=== PATIENT | female | born 1955 | race Caucasian/White ===

== ENCOUNTER 2021-09-24 19:51 | Inpatient (IN) | payer MEDICARE, MEDICAID ==
[~2021-09-24] VITALS: Ht 167.6 cm; Wt 117.0 kg
[~2021-09-24 19:51] MED LIST: ALBUAER3 IN; BUDE0.5S IN; IBUP800T27 PO; LISI20TA28 PO; RABE20TA19 PO; ROFL1TAB2 PO; THEO300T5 PO
[2021-09-24] MEDS ORDERED: IPRATROPIUM BROM 0.5 MG/2.5ML INH SOL NEB ONE ×2 (20:30→22:30)
[2021-09-24] MEDS ORDERED: ALBUTEROL SULF 2.5 MG/0.5ML(0.5%) NEB SOLN NEB ONE ×2 (20:30→22:30)
[2021-09-24] MEDS ORDERED: methylPREDNISolone SOD SUCC 125 MG/2 ML VL IV ONE (20:30)
[2021-09-24] MEDS ORDERED: ALBUTEROL SULF 2.5 MG/0.5ML(0.5%) NEB SOLN ONE (20:34)
[2021-09-24] MEDS ORDERED: AZITHROMYCIN 500MG/ 250ML 250 ML IV ONE (22:00)
[2021-09-24 23:51] LABS: Basophils # (auto) 0.1 10 ^3/uL (0-0.2); Basophils % (auto) 0.9 % (0.0-2.0); Eosinophils # (auto) 0 10 ^3/uL (0-0.8); Hematocrit 44.5 % (36.0-46.0); Hemoglobin 14.2 g/dL (12.2-16.2); Lymphocytes # (auto) 0.3 10 ^3/uL (0.4-5.4); Lymphocytes % (auto) 3.6 % (10.0-50.0); Mean Corpuscular Hemoglobin 28.7 pg (28.0-32.0); Mean Corpuscular Hgb Conc. 31.9 g/dL (32.0-36.0); Mean Corpuscular Volume 89.9 fL (80.0-100.0); Monocytes # (auto) 0.2 10 ^3/uL (0-1.3); Monocytes % (auto) 2.8 % (0.0-12.0); Neutrophils # (auto) 8.3 10 ^3/uL (1.6-8.6); Neutrophils % (auto) 92.7 % (37.0-80.0); Red Blood Cells 4.95 10^6/uL (4.0-5.20); Red Cell Distribution Width 13.5 % (11.8-14.3); White Blood Cell 8.9 10^3/uL (4.4-10.8)
[2021-09-25 00:21] LABS: Lactic Acid w/Reflex 2.4 mmol/L (0.4-2.0)
[2021-09-25 00:22] LABS: Albumin 3.3 g/dL (3.4-5.0); Calcium 8.2 mg/dL (8.5-10.1); Magnesium 2.8 mg/dL (1.6-2.6); Potassium 3.7 mmol/L (3.5-5.1)
[2021-09-25 00:39] LABS: BUN/Creatinine Ratio 12.1; Bilirubin, Total 0.2 mg/dL (0.2-1.0); Total Protein 7.7 g/dL (6.4-8.2)
[2021-09-25] MEDS ORDERED: HYDROcodone-ACET 5/325MG TAB PO PRN (01:00)
[2021-09-25] MEDS ORDERED: TEMAZEPAM 15 MG CAP PO PRN (01:00)
[2021-09-25] MEDS ORDERED: MORPHINE SULFATE INJECTION 2 MG/ML SYRG IV PRN (01:00)
[2021-09-25] MEDS ORDERED: NITROGLYCERIN 0.4 MG SL TAB SL PRN (01:00)
[2021-09-25] MEDS ORDERED: DOCUSATE SOD 100 MG CAP PO PRN (01:00)
[2021-09-25] MEDS: ONDANSETRON HCL 4 MG/2 ML VIAL IV PRN ×5 (01:57→21:28)
[2021-09-25] MEDS: MORPHINE SULFATE 4 MG/ML SYR/VIAL IV PRN ×5 (01:57→21:27)
[2021-09-25] MEDS: methylPREDNISolone SOD SUCC 40 MG/ML VL IV SCH ×3 (05:51→21:26)
[2021-09-25] MEDS: ACETAMINOPHEN 325 MG TAB PO PRN ×2 (05:57→22:07)
[2021-09-25] MEDS ORDERED: ALBUTEROL SULF 2.5 MG/0.5ML(0.5%) NEB SOLN NEB ONE (09:30)
[2021-09-25] MEDS ORDERED: levoFLOXacin 500MG 100 ML IV ONE (10:00)
[2021-09-25] MEDS: ZINC SULFATE 220mg CAP or TAB PO SCH (11:24)
[2021-09-25] MEDS: MULTIPLE VITAMIN TAB PO SCH (11:24)
[2021-09-25] MEDS: ENOXAPARIN SOD 40 MG/0.4 ML SYRINGE SC SCH (11:25)
[2021-09-25] MEDS: ASCORBIC ACID 500 MG TAB PO SCH ×2 (11:25→21:26)
[2021-09-25] MEDS ORDERED: ALBUTEROL SULF 2.5 MG/0.5ML(0.5%) NEB SOLN NEB PRN (12:00)
[2021-09-25 12:30] VITALS: BP 133/66
[2021-09-25] MEDS: PANTOPRAZOLE 40 MG TAB PO ONE ×2 (14:45→15:12)
[2021-09-25] MEDS: ALBUTEROL SULF HFA 90MCG INH 200DOSE IN PRN ×3 (14:51→23:12)
[2021-09-25] MEDS: BUDESONIDE (INHALATION) 180 MCG IH IN SCH ×2 (14:51→22:00)
[2021-09-25 17:00] VITALS: BP 132/70
[2021-09-25] MEDS ORDERED: guaiFENesin 200 MG/10 ML UD GT PRN (18:30)
[2021-09-25] MEDS: guaiFENesin 200 MG/10 ML UD PO PRN (19:42)
[2021-09-25 22:00] VITALS: BP 150/85
[2021-09-26] MEDS: MORPHINE SULFATE 4 MG/ML SYR/VIAL IV PRN ×6 (01:40→22:44)
[2021-09-26] MEDS: guaiFENesin 200 MG/10 ML UD PO PRN ×2 (01:41→05:47)
[2021-09-26] MEDS: ONDANSETRON HCL 4 MG/2 ML VIAL IV PRN ×3 (01:41→10:02)
[2021-09-26] MEDS: ACETAMINOPHEN 325 MG TAB PO PRN (04:07)
[2021-09-26 05:00] VITALS: BP 158/65
[2021-09-26] MEDS: methylPREDNISolone SOD SUCC 40 MG/ML VL IV SCH ×3 (05:46→22:43)
[2021-09-26 07:36] LABS: Basophils # (auto) 0 10 ^3/uL (0-0.2); Eosinophils # (auto) 0 10 ^3/uL (0-0.8); Hematocrit 41.6 % (36.0-46.0); Hemoglobin 13.8 g/dL (12.2-16.2); Lymphocytes # (auto) 0.8 10 ^3/uL (0.4-5.4); Lymphocytes % (auto) 5.9 % (10.0-50.0); Mean Corpuscular Hemoglobin 29.4 pg (28.0-32.0); Mean Corpuscular Hgb Conc. 33.1 g/dL (32.0-36.0); Mean Corpuscular Volume 88.9 fL (80.0-100.0); Monocytes # (auto) 1.1 10 ^3/uL (0-1.3); Monocytes % (auto) 7.5 % (0.0-12.0); Neutrophils # (auto) 12.4 10 ^3/uL (1.6-8.6); Neutrophils % (auto) 86.6 % (37.0-80.0); Nucleated Red Blood Cells % 0.2 %; Red Blood Cells 4.69 10^6/uL (4.0-5.20); Red Cell Distribution Width 13.3 % (11.8-14.3); White Blood Cell 14.3 10^3/uL (4.4-10.8)
[2021-09-26 08:00] LABS: Calcium 8.7 mg/dL (8.5-10.1); Potassium 5.2 mmol/L (3.5-5.1)
[2021-09-26 08:06] LABS: Albumin 3.4 g/dL (3.4-5.0); Bilirubin, Total 0.2 mg/dL (0.2-1.0); Total Protein 7.3 g/dL (6.4-8.2)
[2021-09-26 09:00] VITALS: BP 127/67
[2021-09-26] MEDS: ALBUTEROL SULF HFA 90MCG INH 200DOSE IN PRN (09:19)
[2021-09-26] MEDS: BUDESONIDE (INHALATION) 180 MCG IH IN SCH ×3 (09:28→20:16)
[2021-09-26] MEDS: MULTIPLE VITAMIN TAB PO SCH (09:59)
[2021-09-26] MEDS: ZINC SULFATE 220mg CAP or TAB PO SCH (09:59)
[2021-09-26] MEDS: levoFLOXacin 500MG 100 ML IV SCH (09:59)
[2021-09-26] MEDS: PANTOPRAZOLE 40 MG TAB PO SCH (09:59)
[2021-09-26] MEDS: ASCORBIC ACID 500 MG TAB PO SCH ×2 (10:00→22:43)
[2021-09-26] MEDS: ENOXAPARIN SOD 40 MG/0.4 ML SYRINGE SC SCH (10:00)
[2021-09-26 13:00] VITALS: BP 133/67
[2021-09-26 17:00] VITALS: BP 136/71
[2021-09-26] MEDS: ALBUTEROL SULF 2.5 MG/0.5ML(0.5%) NEB SOLN NEB SCH (20:16)
[2021-09-26 22:01] VITALS: BP 122/64
[2021-09-26] MEDS: MAGIC MOUTHWASH 55 ML SUSP MT PRN (22:44)
[2021-09-27] MEDS: ALBUTEROL SULF 2.5 MG/0.5ML(0.5%) NEB SOLN NEB SCH ×6 (01:34→22:05)
[2021-09-27] MEDS: MORPHINE SULFATE 4 MG/ML SYR/VIAL IV PRN ×5 (03:09→22:21)
[2021-09-27] MEDS: MAGIC MOUTHWASH 55 ML SUSP MT PRN ×2 (04:31→21:22)
[2021-09-27 05:01] VITALS: BP 121/46
[2021-09-27] MEDS: methylPREDNISolone SOD SUCC 40 MG/ML VL IV SCH ×3 (06:12→21:20)
[2021-09-27 09:00] VITALS: BP 138/62
[2021-09-27] MEDS: levoFLOXacin 500MG 100 ML IV SCH (09:17)
[2021-09-27] MEDS: PANTOPRAZOLE 40 MG TAB PO SCH (09:18)
[2021-09-27] MEDS: ZINC SULFATE 220mg CAP or TAB PO SCH (09:18)
[2021-09-27] MEDS: MULTIPLE VITAMIN TAB PO SCH (09:18)
[2021-09-27] MEDS: ASCORBIC ACID 500 MG TAB PO SCH ×2 (09:19→21:20)
[2021-09-27] MEDS: ENOXAPARIN SOD 40 MG/0.4 ML SYRINGE SC SCH ×2 (09:19→21:20)
[2021-09-27 12:50] VITALS: BP 133/56
[2021-09-27 16:57] VITALS: BP 132/66
[2021-09-27] MEDS: guaiFENesin 200 MG/10 ML UD PO PRN (20:28)
[2021-09-27 22:00] VITALS: BP 129/60
[2021-09-27] MEDS: BUDESONIDE (INHALATION) 180 MCG IH IN SCH (22:09)
[2021-09-28] MEDS: ALBUTEROL SULF 2.5 MG/0.5ML(0.5%) NEB SOLN NEB SCH ×5 (02:01→19:05)
[2021-09-28] MEDS: MORPHINE SULFATE 4 MG/ML SYR/VIAL IV PRN ×4 (02:55→19:40)
[2021-09-28] MEDS: MAGIC MOUTHWASH 55 ML SUSP MT PRN ×2 (04:01→11:31)
[2021-09-28 05:00] VITALS: BP 111/57
[2021-09-28] MEDS: methylPREDNISolone SOD SUCC 40 MG/ML VL IV SCH ×3 (06:35→22:27)
[2021-09-28] MEDS: guaiFENesin 200 MG/10 ML UD PO PRN ×3 (06:35→22:28)
[2021-09-28] MEDS: BUDESONIDE (INHALATION) 180 MCG IH IN SCH (06:52)
[2021-09-28] MEDS: levoFLOXacin 500MG 100 ML IV SCH (08:38)
[2021-09-28] MEDS: MULTIPLE VITAMIN TAB PO SCH (08:38)
[2021-09-28] MEDS: ZINC SULFATE 220mg CAP or TAB PO SCH (08:38)
[2021-09-28] MEDS: ASCORBIC ACID 500 MG TAB PO SCH ×2 (08:39→22:27)
[2021-09-28] MEDS: ENOXAPARIN SOD 40 MG/0.4 ML SYRINGE SC SCH ×2 (08:39→22:27)
[2021-09-28] MEDS: PANTOPRAZOLE 40 MG TAB PO SCH (08:39)
[2021-09-28 08:54] VITALS: BP 140/71
[2021-09-28 13:00] VITALS: BP 153/81
[2021-09-28 17:00] VITALS: BP 145/77
[2021-09-28 22:00] VITALS: BP 144/80
[2021-09-29] MEDS: MORPHINE SULFATE 4 MG/ML SYR/VIAL IV PRN ×6 (00:06→21:21)
[2021-09-29] MEDS: BUDESONIDE (INHALATION) 180 MCG IH IN SCH (00:57)
[2021-09-29] MEDS: ALBUTEROL SULF 2.5 MG/0.5ML(0.5%) NEB SOLN NEB SCH ×7 (00:57→23:16)
[2021-09-29 02:16] VITALS: BP 44/80
[2021-09-29 05:00] VITALS: BP 140/67
[2021-09-29] MEDS: methylPREDNISolone SOD SUCC 40 MG/ML VL IV SCH ×3 (06:02→21:20)
[2021-09-29] MEDS: BUDESONIDE (INHALATION) 0.5 MG/2 ML NEB NEB SCH ×2 (06:11→19:46)
[2021-09-29 08:34] VITALS: BP 145/76
[2021-09-29] MEDS: MULTIPLE VITAMIN TAB PO SCH (09:01)
[2021-09-29] MEDS: levoFLOXacin 500MG 100 ML IV SCH (09:01)
[2021-09-29] MEDS: ZINC SULFATE 220mg CAP or TAB PO SCH (09:01)
[2021-09-29] MEDS: ENOXAPARIN SOD 40 MG/0.4 ML SYRINGE SC SCH ×2 (09:02→21:20)
[2021-09-29] MEDS: ASCORBIC ACID 500 MG TAB PO SCH ×2 (09:02→21:20)
[2021-09-29] MEDS: PANTOPRAZOLE 40 MG TAB PO SCH (09:02)
[2021-09-29] MEDS: guaiFENesin 200 MG/10 ML UD PO PRN ×2 (09:37→15:56)
[2021-09-29 13:00] VITALS: BP 146/76
[2021-09-29 16:59] VITALS: BP 132/61
[2021-09-29 22:05] VITALS: BP 153/83
[2021-09-30] MEDS: MORPHINE SULFATE 4 MG/ML SYR/VIAL IV PRN ×6 (01:37→23:14)
[2021-09-30] MEDS: ALBUTEROL SULF 2.5 MG/0.5ML(0.5%) NEB SOLN NEB SCH ×6 (02:16→21:52)
[2021-09-30] MEDS: guaiFENesin 200 MG/10 ML UD PO PRN ×4 (02:56→22:00)
[2021-09-30] MEDS: methylPREDNISolone SOD SUCC 40 MG/ML VL IV SCH ×3 (05:33→22:47)
[2021-09-30 05:50] VITALS: BP 128/75
[2021-09-30] MEDS: BUDESONIDE (INHALATION) 0.5 MG/2 ML NEB NEB SCH ×2 (06:12→21:52)
[2021-09-30 08:54] VITALS: BP 145/75
[2021-09-30] MEDS: PANTOPRAZOLE 40 MG TAB PO SCH (10:14)
[2021-09-30] MEDS: MULTIPLE VITAMIN TAB PO SCH (10:14)
[2021-09-30] MEDS: ASCORBIC ACID 500 MG TAB PO SCH ×2 (10:14→22:48)
[2021-09-30] MEDS: ZINC SULFATE 220mg CAP or TAB PO SCH (10:14)
[2021-09-30] MEDS: levoFLOXacin 500MG 100 ML IV SCH (10:14)
[2021-09-30] MEDS: MAGIC MOUTHWASH 55 ML SUSP MT PRN (10:15)
[2021-09-30] MEDS: ENOXAPARIN SOD 40 MG/0.4 ML SYRINGE SC SCH ×2 (10:15→22:48)
[2021-09-30 13:00] VITALS: BP 120/56
[2021-09-30 17:00] VITALS: BP 136/70
[2021-09-30 21:41] VITALS: BP 140/73
[2021-10-01] VITALS (7 sets, daily range): BP systolic 126–153; BP diastolic 69–78
[2021-10-01] MEDS: ALBUTEROL SULF 2.5 MG/0.5ML(0.5%) NEB SOLN NEB SCH ×5 (02:14→22:49)
[2021-10-01] MEDS: MORPHINE SULFATE 4 MG/ML SYR/VIAL IV PRN ×5 (03:13→21:02)
[2021-10-01] MEDS: guaiFENesin 200 MG/10 ML UD PO PRN ×4 (03:13→21:09)
[2021-10-01] MEDS: methylPREDNISolone SOD SUCC 40 MG/ML VL IV SCH ×2 (05:57→12:55)
[2021-10-01] MEDS: BUDESONIDE (INHALATION) 0.5 MG/2 ML NEB NEB SCH ×2 (06:09→18:49)
[2021-10-01] MEDS: ZINC SULFATE 220mg CAP or TAB PO SCH (09:42)
[2021-10-01] MEDS: levoFLOXacin 500MG 100 ML IV SCH (09:42)
[2021-10-01] MEDS: MULTIPLE VITAMIN TAB PO SCH (09:43)
[2021-10-01] MEDS: ENOXAPARIN SOD 40 MG/0.4 ML SYRINGE SC SCH ×2 (09:43→22:00)
[2021-10-01] MEDS: ASCORBIC ACID 500 MG TAB PO SCH ×2 (09:43→22:00)
[2021-10-01] MEDS: PANTOPRAZOLE 40 MG TAB PO SCH (09:43)
[2021-10-01] MEDS ORDERED: ALBUTEROL SULF HFA 90MCG INH 200DOSE IN PRN (11:15)
[2021-10-01] MEDS ORDERED: ALBUTEROL SULF 2.5 MG/0.5ML(0.5%) NEB SOLN NEB ONE (14:00)
[2021-10-01] MEDS ORDERED: ALBUTEROL SULF 2.5 MG/0.5ML(0.5%) NEB SOLN NEB SCH ×2 (15:15→18:00)
[2021-10-02] MEDS: methylPREDNISolone SOD SUCC 40 MG/ML VL IV SCH ×2 (00:40→13:15)
[2021-10-02] MEDS: MORPHINE SULFATE 4 MG/ML SYR/VIAL IV PRN ×3 (01:06→09:54)
[2021-10-02] MEDS: ALBUTEROL SULF 2.5 MG/0.5ML(0.5%) NEB SOLN NEB SCH ×4 (02:10→14:00)
[2021-10-02 05:00] VITALS: BP 129/72
[2021-10-02] MEDS: guaiFENesin 200 MG/10 ML UD PO PRN (06:31)
[2021-10-02 08:25] VITALS: BP 138/70
[2021-10-02] MEDS: BUDESONIDE (INHALATION) 0.5 MG/2 ML NEB NEB SCH (09:10)
[2021-10-02] MEDS: ZINC SULFATE 220mg CAP or TAB PO SCH (09:52)
[2021-10-02] MEDS: MULTIPLE VITAMIN TAB PO SCH (09:52)
[2021-10-02] MEDS: levoFLOXacin 500MG 100 ML IV SCH (09:52)
[2021-10-02] MEDS: PANTOPRAZOLE 40 MG TAB PO SCH (09:52)
[2021-10-02] MEDS: ASCORBIC ACID 500 MG TAB PO SCH (09:53)
[2021-10-02] MEDS: ENOXAPARIN SOD 40 MG/0.4 ML SYRINGE SC SCH (09:53)
[2021-10-02 12:32] VITALS: BP 147/75
== END 2021-10-02 15:45 | disposition home or self-care (01) | DRG 177 ==
LOC: EDBD 19:51 → EDUNIT# 19:51 → ER 19:55 → TELE 09-25 00:46 → TELE-EAST 09-25 08:41
PROVIDERS: ADMIT Internal Medicine; ATTEND Internal Medicine
DX: U07.1 COVID-19 (principal); J96.01 Acute respiratory failure with hypoxia; J12.82 Pneumonia due to coronavirus disease 2019; J44.0 Chronic obstructive pulmonary disease with (acute) lower respiratory infection; J44.1 Chronic obstructive pulmonary disease with (acute) exacerbation; Z68.41 Body mass index [BMI] 40.0-44.9, adult; E66.01 Morbid (severe) obesity due to excess calories; F17.210 Nicotine dependence, cigarettes, uncomplicated; M47.817 Spondylosis without myelopathy or radiculopathy, lumbosacral region; Z80.3 Family history of malignant neoplasm of breast; Z82.3 Family history of stroke; Z86.73 Personal history of transient ischemic attack (TIA), and cerebral infarction without residual deficits
CPT/HCPCS: 36415; 36600; 71045; 80053; 82728; 82805; 83605; 83615; 83735; 83880; 84484; 85025; 85379; 87040; 87426; 93005; 94640; 94644; 96365; 96366; 96375; 97116; 97162; 97530; G0378; J1956; J2405